=== PATIENT | male | born 1950 | race Caucasian/White ===

== ENCOUNTER 2018-05-09 19:34 | Emergency (ER) | payer OTHER ==
[~2018-05-09] VITALS: Ht 195.6 cm; Wt 111.0 kg
[2018-05-09 21:05] VITALS: BP 127/79
== END 2018-05-09 21:30 | disposition left against medical advice (07) ==
LOC: ER 19:34
DX: F41.9 Anxiety disorder, unspecified (principal); Z53.21 Procedure and treatment not carried out due to patient leaving prior to being seen by health care provider